=== PATIENT | female | born 1975 | race Caucasian/White ===

== ENCOUNTER 2017-10-13 15:09 | Emergency (ER) | payer OTHER ==
[~2017-10-13] VITALS: Ht 170.2 cm; Wt 133.9 kg
[~2017-10-13 15:09] MED LIST: ACETAMINOPHEN650 M5 PO; ADULT LOW DOSE81 MG PO; ASPIR-LOW81 MG PO; ASPIR-TRIN325 MG PO; ASPIRIN EC81 M1 PO; ATORVASTATIN CA40 MG PO; AZITHROMYCIN 2250 MG PO; BRILINTA90 MG PO; BUMETANIDE 1 MG1 M1 PO; BUMEX2 MG PO; BYETTA PEN 51 PENIN1 SUBQ; CARVEDILOL12.5 MG PO; CARVEDILOL25 MG PO; CARVEDILOL6.25 MG PO; CEFDINIR300 MG PO; CENTRUM SILVER1 EAC2 PO; CIPROFLOXACIN500 M1 PO; CLOTRIMAZOLE 1%15 G1 TOP; COZAAR 50 MG TA50 MG PO; COZAAR100 MG PO; CRESTOR10 MG PO; DIFLUCAN200 MG PO; DOXYCYCLINE 10100 M1 PO; ENTRESTO 24 MG1 EACH PO; FENOFIBRATE160 MG PO; FEOSOL325 M1 PO; FISH OIL 1,001000 M2 PO; FLONASE 0.05%50 MCG NASAL; GLUCOPHAGE XR500 MG PO; GLUCOPHAGE1000 MG PO; HUMALOG MI100 UNIT/3; HUMALOG100 UNIT/1 SUBQ; HYDRALAZINE 2525 M1 PO; IRON SUPPLEMEN325 MG PO; IRON325 PO; JANUVIA50 MG PO; KEFLEX500 MG PO; LASIX 40 MG TAB40 MG PO; LASIX 80 MG TAB80 MG PO; LEVAQUIN 500 M500 MG PO; LEVAQUIN 750 M750 MG PO; LEVEMIR SUBQ; LIPITOR 20 MG T20 M1 PO; LIPITOR40 MG PO; MACROBID 100 M100 M1 PO; MINOCIN100 MG PO; MS CONTIN15 MG PO; MULTIVITAMINS1 EAC7 PO; NEURONTIN 300300 M1 PO; NITROGLYCERIN0.4 MG SUBLING; NORCO 7.5-3251 EACH PO; NORVASC5 MG PO; OMEPRAZOLE20 M2 PO; ONDANSETRON HCL4 M2 PO; OSELB75 PO; PERCOCET 10-321 EACH PO; PHENERGAN 25 MG25 M1 PO; PLAVIX 75 MG TA75 M1 PO; POTASSIUM20 PO; PROTONIX40 M1 PO; PYRIDIUM200 MG PO; ROBAXIN 750 MG750 M1 PO; SANTYL OINTMENT30 G1 TOP; TESSALON PERLE100 MG PO; TYLENOL325 MG PO; VANCO1GM PO; VENTOLIN HFA 1818 GM INH; VITAMIN B12-FO1 EAC1 PO; ZOFRAN ODT4 MG PO; ZOFRAN ODT4 MG SUBLING
[2017-10-13] MEDS ORDERED: LASIX 40 MG TAB40 M2 PO (15:26)
[2017-10-13 17:11] LABS: ABSOLUTE BASOPHILS 0.1 thou/uL (0.0-0.2); ABSOLUTE EOSINOPHILS 0.2 thou/uL (0.0-0.7); ABSOLUTE LYMPHOCYTES 2.8 thou/uL (0.8-5.3); ABSOLUTE MONOCYTES 0.6 thou/uL (0.0-1.2); BASOPHILS 0.9 %; EOSINOPHILS 2.2 %; HEMATOCRIT 38.8 % (37.0-47.0); HEMOGLOBIN 12.6 gm/dL (12.0-15.0); LYMPHOCYTES 32.1 %; MCH 27.4 pg (26.0-34.0); MCHC 32.6 g/dL (28.0-37.0); MCV 84.2 fL (80.0-100.0); MONOCYTES 6.8 %; MPV 9.1 fl. (7.2-11.1); NUCLEATED RBCS 0 /100WBC; PLATELET COUNT* 367 thou/uL (150-400); RBC 4.61 mil/uL (4.20-5.00); RDW-CV 15.3 % (10.5-14.5); WBC 8.6 thou/uL (4.0-11.0)
[2017-10-13 17:18] LABS: ANION GAP 5 mmol/L (7-16); BUN 31 mg/dL (7-18); CALCIUM 9.3 mg/dL (8.5-10.1); CHLORIDE 98 mmol/L (98-107); CO2 31 mmol/L (21-32); CREATININE 1.6 mg/dL (0.6-1.3); GLUCOSE 289 mg/dL (70-99); SODIUM 134 mmol/L (136-145)
[2017-10-13 17:18] LABS: URINE BILIRUBIN NEGATIVE (Negative); URINE BLOOD 2+ (Negative); URINE CLARITY SL CLOUDY; URINE COLOR YELLOW; URINE GLUCOSE-RANDOM 3+ (Negative); URINE KETONES NEGATIVE (Negative); URINE LEUKOCYTES-REFLEX 1+ (Negative); URINE NITRITE-REFLEX NEGATIVE (Negative); URINE PROTEIN 3+ (Negative); URINE UROBILINOGEN 0.2 E.U./dl (0.2-1.0)
[2017-10-13 17:25] LABS: ALBUMIN 2.6 g/dL (3.4-5.0); ALKALINE PHOSPHATASE 122 U/L (46-116); SGOT 17 U/L (15-37); SGPT 24 U/L (30-65); TOTAL BILIRUBIN 0.2 mg/dL (<0.1-1.0); TOTAL PROTEIN 7.6 g/dL (6.4-8.2); TROPONIN-I LEVEL <0.06 ng/mL (<0.06)
[2017-10-13 17:26] LABS: SQUAMOUS >10 Many /LPF (0-3)
[2017-10-13 17:26] LABS: AMP/METHAMP Negative (Negative); BARBITURATES Negative (Negative); BENZODIAZEPINES Negative (Negative); COCAINE Negative (Negative); METHADONE Negative (Negative); OPIATES Negative (Negative); PCP Negative (Negative); THC Negative (Negative)
[2017-10-13 17:27] LABS: CASTS None Seen /LPF (None Seen); CRYSTALS None Seen /LPF (None Seen); URINE RBC >20 Many /HPF (0-2); URINE WBC-REFLEX >25 Many /HPF (0-5)
[2017-10-13 19:00] VITALS: BP 160/80
== END 2017-10-13 19:00 | disposition home or self-care (01) ==
LOC: M.ERS 15:09
PROVIDERS: Personal Emergency Response Attendant
DX: B34.9 Viral infection, unspecified (principal); R42 Dizziness and giddiness; E11.9 Type 2 diabetes mellitus without complications; G47.30 Sleep apnea, unspecified; E66.01 Morbid (severe) obesity due to excess calories; I73.9 Peripheral vascular disease, unspecified; I11.0 Hypertensive heart disease with heart failure; I50.9 Heart failure, unspecified; Z88.8 Allergy status to other drugs, medicaments and biological substances; Z90.49 Acquired absence of other specified parts of digestive tract; Z88.2 Allergy status to sulfonamides; Z79.4 Long term (current) use of insulin; Z68.42 Body mass index [BMI] 45.0-49.9, adult

== ENCOUNTER 2018-03-06 04:41 | Inpatient (IN) | payer OTHER ==
[~2018-03-06] VITALS: Ht 180.3 cm; Wt 142.3 kg
[~2018-03-06 04:41] MED LIST changes: +LASIX 40 MG TAB40 M2 PO
[2018-03-06 04:47] VITALS: BP 171/79
[2018-03-06] MEDS ORDERED: COREG25 M1 PO (05:06)
[2018-03-06] MEDS ORDERED: IRON325 PO (05:07)
[2018-03-06] MEDS ORDERED: LASIX 40 MG TAB40 M1 PO (05:07)
[2018-03-06] MEDS ORDERED: NEURONTIN600 MG PO (05:09)
[2018-03-06] MEDS ORDERED: NEURONTIN 300M300 M2 PO (05:10)
[2018-03-06] MEDS ORDERED: HYSINGLA ER30 MG PO (05:11)
[2018-03-06 05:48] LABS: ABSOLUTE BASOPHILS 0.1 thou/uL (0.0-0.2); ABSOLUTE EOSINOPHILS 0.3 thou/uL (0.0-0.7); ABSOLUTE LYMPHOCYTES 2.9 thou/uL (0.8-5.3); ABSOLUTE MONOCYTES 0.6 thou/uL (0.0-1.2); ABSOLUTE NEUTROPHILS 5.1 thou/uL (1.6-8.1); BASOPHILS 1.4 %; EOSINOPHILS 2.9 %; HEMATOCRIT 33.7 % (37.0-47.0); HEMOGLOBIN 10.7 gm/dL (12.0-15.0); MCHC 31.8 g/dL (28.0-37.0); MCV 84.8 fL (80.0-100.0); MONOCYTES 6.8 %; MPV 8.9 fl. (7.2-11.1); NUCLEATED RBCS 0 /100WBC; PLATELET COUNT* 392 thou/uL (150-400); POLYS 56.9 %; RBC 3.98 mil/uL (4.20-5.00); RDW-CV 15.7 % (10.5-14.5); WBC 8.9 thou/uL (4.0-11.0)
[2018-03-06 05:53] LABS: URINE BILIRUBIN NEGATIVE (Negative); URINE BLOOD 2+ (Negative); URINE CLARITY CLEAR; URINE COLOR STRAW; URINE GLUCOSE-RANDOM 1+ (Negative); URINE KETONES NEGATIVE (Negative); URINE PROTEIN 3+ (Negative); URINE UROBILINOGEN 0.2 E.U./dl (0.2-1.0)
[2018-03-06 05:58] LABS: URINE LEUKOCYTES-REFLEX 2+ (Negative); URINE NITRITE-REFLEX POSITIVE (Negative)
[2018-03-06 05:59] LABS: CALCIUM 8.9 mg/dL (8.5-10.1); CREATININE 1.6 mg/dL (0.6-1.3)
[2018-03-06 06:03] LABS: BACTERIA-REFLEX >30 Many /HPF (None Seen); CASTS None Seen /LPF (None Seen); CRYSTALS None Seen /LPF (None Seen); MUCUS 0-3 Light strn/LPF (None Seen); SQUAMOUS 4-10 Moderate /LPF (0-3); TRANSITIONAL EPITHEL CELL 4-10 Moderate /LPF (None Seen); URINE WBC-REFLEX >25 Many /HPF (0-5); WBC CLUMPS Many (None Seen)
[2018-03-06 10:45] VITALS: BP 157/87
[2018-03-06 11:11] VITALS: BP 160/84
[2018-03-06] MEDS ORDERED: ENTRESTO 49 MG1 EACH PO (11:49)
[2018-03-06 16:00] VITALS: BP 185/96
--- NOTE | 2018-03-06 16:54 | 2DMMODE ---
[place] [address] 2 D/M-MODE ECHOCARDIOGRAM Name: CANDACE MARIA Room: [address] IN M.R.#: [id number] Admission: 03/06/18 Attend Phys: Tito Dubon Discharge: Date of : 75 Date of Service: 03/06/18 1654 Report #: [id number] THIS REPORT FOR: //name// APPROVED REPORT Study performed: 03/06/2018 14:41:53 EXAM: Comprehensive 2D, Doppler, and color-flow Echocardiogram Patient Location: Bedside BSA: 2.51 HR: 72 bpm BP: 160/84 mmHg Other Information Study Quality: Fair Indications Congestive Heart Failure 2D Dimensions LVEF(%): 50.10 (>50%) IVSd: 10.08 (7-11mm) LVOT Diam: 18.54 (18-24mm) LVDd: 47.01 mm PWd: 9.83 (7-11mm) Ascending Ao: 31.81 (22-36mm) LVDs: 35.07 (25-40mm) Aortic Root: 31.71 mm Phipps's LVEF: 50.10 % Volumes Left Atrial Volume (Systole) LA ESV Index: 36.80 mL/m2 Aortic Valve AoV Peak Alejandro.: 0.98 m/s AO Peak Gr.: 3.88 mmHg LVOT Max P.22 mmHg AO Mean Gr.: 2.23 mmHg LVOT Mean P.70 mmHg LVOT Max V: 0.55 m/s AO V2 VTI: 17.63 cm LVOT Mean V: 0.39 m/s RO (VTI): 1.85 cm2 LVOT V1 VTI: 12.11 cm Mitral Valve E/A Ratio: 1.95 MV Decel. Time: 165.76 ms MV E Max Alejandro.: 0.72 m/[place] [address] 2 D/M-MODE ECHOCARDIOGRAM Name: CANDACE MARIA Room: [address] IN .R.#: [id number] Admission: 03/06/18 Attend Phys: Tito Dubon Discharge: Date of : 75 Date of Service: 03/06/18 1654 Report #: [id number] MV PHT: 48.07 ms MVA (PHT): 4.58 cm2 TDI E/Lateral E': 18.00 E/Medial E': 10.29 Medial E' Alejandro.: 0.07 m/s Lateral E' Alejandro.: 0.04 m/s Pulmonary Valve PV Peak Alejandro.: 0.85 m/s PV Peak Gr.: 2.92 mmHg Tricuspid Valve RAP Estimate: 5.00 mmHg TR Peak Gr.: 50.95 mmHg RVSP: 55.95 mmHg PA Pressure: 55.95 mmHg Left Ventricle The left ventricle is normal size. inferobasilar hypokinesis is noted There is normal left ventricular wall thickness. Left ventricular systolic function is borderline. LVEF is 50-55%. The left ventricular diastolic function is normal. Right Ventricle The right ventricle is normal size. The right ventricular systolic function is normal. Atria Left atrium is mildly dilated. Right atrium is mildly dilated. Aortic Valve Mild aortic valve sclerosis. Trace aortic regurgitation. There is no aortic valvular stenosis. Mitral Valve The mitral valve is normal in structure. Trace mitral regurgitation. No evidence of mitral valve stenosis. Tricuspid Valve The tricuspid valve is normal in structure. Moderate tricuspid regurgitation. Pulmonic Valve The pulmonary valve is normal in structure. [place] [address] 2 D/M-MODE ECHOCARDIOGRAM Name: CANDACE MARIA Room: [address]#: [id number] Admission: 03/06/18 Attend Phys: Tito Dubon Discharge: Date of : 75 Date of Service: 03/06/18 1654 Report #: [id number] Great Vessels The aortic root is normal in size. IVC is normal in size and collapses with >50% inspiration Pericardium Mild circumferential pericardial effusion. <Conclusion> The left ventricle is normal size. There is normal left ventricular wall thickness. LVEF is 50-55%. The left ventricular diastolic function is normal. The right ventricle is normal size. Left atrium is mildly dilated. Mild aortic valve sclerosis. Trace aortic regurgitation. There is no aortic valvular stenosis. The mitral valve is normal in structure. IVC is normal in size and collapses with >50% inspiration Mild circumferential pericardial effusion. inferobasilar hypokinesis is noted <ELECTRONICALLY SIGNED> By: Watson Soriano MD, FACC 03/06/181653 53 53 Watson Soriano MD, FACC /INF
--- NOTE | 2018-03-06 18:43 | EKG ---
[place] [address] ELECTROCARDIOGRAM REPORT Name: CANDACE MARIA Room: [address] IN [facility]#: [id number] Admission: 03/06/18 Attend Phys: Nicolle Turcios Discharge: Date of : 75 Report #: [id number] THIS REPORT FOR: //name// [facility] ED Test Date: 2018-03-06 Test Time: 05:43:36 Pat Name: CANDACE ENG Department: Room: Gender: F [place] Ref[employer]ator: [facility] : 1975 Requested By: Tiki Luna Order Number: [id number] MD: Watson Soriano Measurements Intervals [place] Rate: 74 P: 34 IA: 131 QRS: -8 QRSD: 93 T: 140 QT: 418 QTc: 464 Interpretive Statements Sinus rhythm Inferior infarct, old Consider anterior infarct Lateral leads are also involved Compared to ECG 08/14/2017 09:23:51 Myocardial infarct finding now present T-wave abnormality no longer present Possible ischemia no longer present Electronically Signed On 03-06-2018 18:43:17 CDT by Watson Soriano [email or web address] <ELECTRONICALLY SIGNED> By: Watson Soriano MD, [facility] 03/06/18 1843 0543 0543 Watson Soriano MD, [facility] /EPI
[2018-03-06 19:40] VITALS: BP 149/91
[2018-03-06 23:00] VITALS: BP 160/82
[2018-03-07 03:00] VITALS: BP 144/70
[2018-03-07 09:00] VITALS: BP 179/87
[2018-03-07 11:35] VITALS: BP 134/64
[2018-03-07 15:57] VITALS: BP 134/68
[2018-03-07 19:25] VITALS: BP 140/64
[2018-03-08] VITALS: BP 123/57
[2018-03-08 04:00] VITALS: BP 137/65
[2018-03-08 08:30] VITALS: BP 159/84
[2018-03-08 12:00] VITALS: BP 154/79
[2018-03-08 15:22] VITALS: BP 157/89
[2018-03-08 18:11] LABS: URINE BILIRUBIN NEGATIVE (Negative); URINE BLOOD 1+ (Negative); URINE CLARITY CLEAR; URINE COLOR YELLOW; URINE GLUCOSE-RANDOM 1+ (Negative); URINE KETONES NEGATIVE (Negative); URINE LEUKOCYTES 1+ (Negative); URINE NITRITE NEGATIVE (Negative); URINE PROTEIN 2+ (Negative); URINE UROBILINOGEN 0.2 E.U./dl (0.2-1.0)
[2018-03-08 18:17] LABS: MUCUS None Seen strn/LPF (None Seen); SQUAMOUS 4-10 Moderate /LPF (0-3)
[2018-03-08 18:18] LABS: URINE WBC >25 Many /HPF (0-5); WBC CLUMPS Few (None Seen)
[2018-03-08 18:19] LABS: BACTERIA 1-9 Few /HPF (None Seen); URINE RBC 0-2 Rare /HPF (0-2)
[2018-03-08 18:20] LABS: CRYSTALS None Seen /LPF (None Seen); HYALINE CASTS 0-3 Few /LPF (None Seen)
[2018-03-08 20:00] VITALS: BP 188/97
[2018-03-09] VITALS (7 sets, daily range): BP systolic 103–170; BP diastolic 64–89
--- NOTE | 2018-03-09 16:58 | CARDNUC ---
[place] [address] CARDIAC NUCLEAR IMAGING REPORT Name: CANDACE MARIA Room: [address] IN [facility]#: [id number] Admission: 03/06/18 Attend Phys: Tito Dubon Discharge: Date of : 75 Date of Service: 03/09/18 1658 Report #: [id number] THIS REPORT FOR: //name// APPROVED REPORT Imaging Protocol: Stress Tc-99m/Rest Tc-99m 2 days Study performed: 03/08/2018 09:39:00 Indication: Dyspnea Patient Location: In-Patient Room #: 211 Stress Tech: Heather Townsend Stress Nurse: Selene Pham RN NM Tech:DEION Kumar Ht: 5 ft 11 in Wt: 317 lbs BSA: 2.56 m2 BMI: 44.20 Medical History Medical History: CAD s/p stent, Diabetes, HTN, Hyperlipidemia, PAD, CHF Medications: coreg, fenofibrate, asa, lasix, kcl, clopidogrel Allergies: sulfa, lisinopril, polyethylene, kcl, colesevelany, bicarbonate, sitagliptin Cardiac Risk Factors: Age, DM, FHX of CAD, HTN, Hyperlipidemia, PVD Previous Cardiac Procedures: PCI Exercise History: Sedentary Meds Held (24 hrs): coreg Resting Data Rest SPECT myocardial perfusion imaging was performed in supine position 30 minutes following the intravenous injection of 42 mCi of Tc-99m Sestamibi. Time of rest injection: 0820 Date: 03/09/2018 Time of rest imagin The images were gated to evaluate regional wall motion and calculate left ventricular ejection fraction. Administration Route: IV Administration Site: Left AC Pharmacologic Stress Pharmacologic stress test was performed by injecting Regadenoson 0.4 mg IV push over 10-15 seconds immediately [place] [address] CARDIAC NUCLEAR IMAGING REPORT Name: CANDACE MARIA Room: [address]#: [id number] Admission: 03/06/18 Attend Phys: Tito Dubon Discharge: Date of : 75 Date of Service: 03/09/18 1658 Report #: [id number] injection of 39.1 mCi of Tc-99m Sestamibi. Time of stress injection: 1400 Date: 03/08/2018 Administration Route: IV Administration Site: Left AC Heart Rate at time of stress injection: 87 bpm. Gated Stress SPECT was performed 40 minutes after stress injection. The images were gated to evaluate regional wall motion and calculate left ventricular ejection fraction. Stress only was performed in the Supine position. Stress Test Details Stress Test: Pharmacologic stress testing performed using 0.4 mg of regadenoson per 5 mL given IV over 10 seconds. Reason for pharmacologic stress test: physical limitation. HR Resting HR: 70 bpm Max Heart Rate (APMHR): 178 bpm Max HR Achieved: 87 bpm Target HR (85% APMHR): 151 bpm % of APMHR: 48 Recovery HR: 85 bpm HR response to stress: Normal HR response to stress BP Resting BP: 130/90 mmHg Max BP: 145/68 mmHg BP response to stress: Normal blood pressure response to stress. ECG Resting ECG: nsr anterior infarct Stress ECG: same ST Change: none Recovery ECG: nsr Clinical Reason for Termination: Completed protocol Stress Symptoms: None Exercise duration: 0 min sec Exercise capacity: 1.0 METs Stress ECG Conclusion negative ecg Study Quality Study: [place] [address] CARDIAC NUCLEAR IMAGING REPORT Name: CANDACE MARIA Room: [address]#: [id number] Admission: 03/06/18 Attend Phys: Tito Dubon Discharge: Date of : 75 Date of Service: 03/09/18 1658 Report #: [id number] Artifact: Severe Breast artifact Lung Uptake: Normal Study Data At rest, the left ventricular ejection fraction was 41%.. Post stress, the left ventricular ejection was 48%.. SSS: 27 SRS: 26 SDS: 1 Perfusion This study reveals a large, severe intensity anterior , inferolateral defects. They are partially reversible in particular laterally. There is significant breast shadowing present, but gating reveals hypokinesis laterally and anterior. Images were reviewed using [employer] ([employer]). Wall Motion anterior and lateral hypokinesis Nuclear Conclusion ECG Findings: negative for ischemia Clinical Findings: negative for ischemia Nuclear Findings: positive for ischemia Exercise Capacity: not assessed Left Ventricular Function: abnormal Risk Study: high Given the size of the defect and LV dysfunction, findings compatible with an ischemic cardiomyopathy and lateral ischemia. <Conclusion> negative ecg <ELECTRONICALLY SIGNED> By: Stephan Gill MD, FACC 03/09/18 1658 57 57 Stephan Gill MD, FACC /INF
[2018-03-10] VITALS (18 sets, daily range): BP systolic 132–177; BP diastolic 62–98
[2018-03-10 05:31] LABS: APTT 27.8 Seconds (25.0-31.3)
[2018-03-10 05:45] LABS: ANION GAP 8 mmol/L (7-16); BUN 33 mg/dL (7-18); CALCIUM 9.3 mg/dL (8.5-10.1); CHLORIDE 100 mmol/L (98-107); CHOLESTEROL 269 mg/dL (<200); CO2 29 mmol/L (21-32); CREATININE 1.8 mg/dL (0.6-1.3); GLUCOSE 204 mg/dL (70-99); HDL CHOLESTEROL 29 mg/dL (>40); POTASSIUM 5.2 mmol/L (3.5-5.1); SODIUM 137 mmol/L (136-145); TC:HDL 9.3 Ratio (Not establshd); TRIGLYCERIDE 637 mg/dL (<150); VLDL 127 mg/dL (<40)
[2018-03-10 05:52] LABS: LDL CHOLESTEROL ND mg/dL (<100); SERUM ASSESSMENT Clear
[2018-03-10 08:27] LABS: ABSOLUTE BASOPHILS 0.1 thou/uL (0.0-0.2); ABSOLUTE EOSINOPHILS 0.3 thou/uL (0.0-0.7); ABSOLUTE LYMPHOCYTES 3.3 thou/uL (0.8-5.3); ABSOLUTE MONOCYTES 0.7 thou/uL (0.0-1.2); ABSOLUTE NEUTROPHILS 4.7 thou/uL (1.6-8.1); BASOPHILS 1.2 %; EOSINOPHILS 3.3 %; HEMATOCRIT 34.1 % (37.0-47.0); HEMOGLOBIN 10.5 gm/dL (12.0-15.0); LYMPHOCYTES 36.3 %; MCH 26.7 pg (26.0-34.0); MCHC 30.8 g/dL (28.0-37.0); MCV 86.8 fL (80.0-100.0); MONOCYTES 8.1 %; MPV 9.7 fl. (7.2-11.1); NUCLEATED RBCS 0 /100WBC; PLATELET COUNT* 379 thou/uL (150-400); POLYS 51.1 %; RBC 3.93 mil/uL (4.20-5.00); WBC 9.2 thou/uL (4.0-11.0)
[2018-03-10 17:17] LABS: URINE BILIRUBIN NEGATIVE (Negative); URINE BLOOD 1+ (Negative); URINE CLARITY CLEAR; URINE COLOR YELLOW; URINE GLUCOSE-RANDOM TRACE (Negative); URINE KETONES NEGATIVE (Negative); URINE LEUKOCYTES-REFLEX 1+ (Negative); URINE NITRITE-REFLEX NEGATIVE (Negative); URINE PROTEIN 2+ (Negative); URINE UROBILINOGEN 0.2 E.U./dl (0.2-1.0)
[2018-03-10 17:23] LABS: SQUAMOUS 4-10 Moderate /LPF (0-3)
[2018-03-10 17:24] LABS: AMORPHOUS URATES Few /LPF (None Seen); CASTS None Seen /LPF (None Seen); URINE RBC 0-2 Rare /HPF (0-2)
[2018-03-11 04:00] VITALS: BP 139/63
[2018-03-11 05:30] LABS: ABSOLUTE BASOPHILS 0.1 thou/uL (0.0-0.2); ABSOLUTE EOSINOPHILS 0.2 thou/uL (0.0-0.7); ABSOLUTE LYMPHOCYTES 2.5 thou/uL (0.8-5.3); ABSOLUTE MONOCYTES 0.7 thou/uL (0.0-1.2); ABSOLUTE NEUTROPHILS 4.2 thou/uL (1.6-8.1); BASOPHILS 0.9 %; EOSINOPHILS 2.7 %; HEMOGLOBIN 10.3 gm/dL (12.0-15.0); LYMPHOCYTES 32.4 %; MCH 27.4 pg (26.0-34.0); MCV 85.4 fL (80.0-100.0); MONOCYTES 8.8 %; MPV 9.3 fl. (7.2-11.1); NUCLEATED RBCS 0 /100WBC; PLATELET COUNT* 341 thou/uL (150-400); POLYS 55.2 %; RBC 3.75 mil/uL (4.20-5.00); RDW-CV 15.8 % (10.5-14.5); WBC 7.6 thou/uL (4.0-11.0)
[2018-03-11 05:54] LABS: CALCIUM 8.6 mg/dL (8.5-10.1); CREATININE 1.7 mg/dL (0.6-1.3); MAGNESIUM 2.1 mg/dL (1.8-2.4); POTASSIUM 4.2 mmol/L (3.5-5.1)
[2018-03-11 08:00] VITALS: BP 170/83
[2018-03-11 11:34] VITALS: BP 158/68
[2018-03-11] MEDS ORDERED: TOPROL XL50 MG PO (14:16)
[2018-03-11 14:27] VITALS: BP 158/68
--- NOTE | 2018-03-20 17:14 | CARD ---
[address] [address] CARDIAC CATH REPORT Name: CANDACE MARIA Room: [address] IN [facility]#: [id number] Admission: 03/06/18 Attend Phys: Nicolle Turcios Discharge: 03/11/18 Date of : 75 Report #: [id number] THIS REPORT FOR: //name// APPROVED REPORT Study performed: 03/10/2018 12:03:31 Patient Details Patient Status: In-Patient Room #: The patient is a 42 year-old female Event Personnel Moe Barillas Remedial Project Manager, Mary Anne Vinson RN RN, Elena Naqvi RN Monitor, Lindsay Carbajal RTR Scrub Procedures Performed Art Access - R femoral artery* , Left Heart Catheterization Hemostasis w/ Mynx Procedure Narrative A 6 Fr. sheath was inserted into the Right femoral Artery. Coronary angiography was performed using coronary diagnostic catheters. The right coronary system was accessed and visualized with a 6Fr JR4 catheter. The left coronary system was accessed and visualized with a 6Fr JL4 catheter. The left ventricle was accessed and visualized with a 6Fr Pigtail catheter. Pre-demployment femoral angiogram was performed . Closure device was deployed with a Fr MynxGrip 6/7F. The patient tolerated the procedure well and there were no complications associated with the procedure. Intraoperative Conscious Sedation Fentanyl 50 mcg Dose: 969 mGy Contrast Type and Amount: Visipaque 90 ml Coronary Angiography The patient's coronary anatomy is right dominant. Diagnostic Cath Left Main Normal LAD Widely patent stent proximally. Mid vessel free of significant disease. Distally the vessel is diffusely diseased up to 70% throughout. Diagonal 1 Small in caliber 90% [place] [address] CARDIAC CATH REPORT Name: CANDACE MARIA Room: [address]#: [id number] Admission: 03/06/18 Attend Phys: Nicolle Turcios Discharge: 03/11/18 Date of : 75 Report #: [id number] Diagonal 2 Small in caliber 90% ostial stenosis. Circumflex 10% plaquing proximally. 30% narrowing in the mid vessel. OM1 Small in caliber with 60-70% narrowing proximally. OM2 Large in caliber 50% narrowing proximally. Right Coronary Totally occluded stent proximally. Hemodynamics The aortic pressure is 155/76 mmHg with a mean of 98 mmHg. The left ventricular pressure is 149/26 mmHg with a mean of mmHg. The left ventricular end diastolic pressure is 42 mmHg. Conclusion 1. Severe three-vessel coronary artery disease 2. Elevated left ventricular end-diastolic pressure consistent with acute diastolic heart failure Recommendations Continue aggressive risk factor modification and medical management <ELECTRONICALLY SIGNED> By: Moe Barillas MD, FACC 03/20/18 1714 1714 1714Michaesandie Barillas MD, [facility] /INF
--- NOTE | 2018-03-23 09:13 | CON ---
[address] [address] CONSULTATION Name: CANDACE MARIA Room: [address]#: [id number] Admission: 03/06/18 Attend Phys: Nicolle Turcios Discharge: 03/11/18 Date of : 75 Report #: [id number] THIS REPORT FOR: //name// CC: Tito Ferrell DATE OF SERVICE: 03/10/2018 REASON FOR NEPHROLOGY CONSULTATION: Chronic kidney disease stage 3. CONSULTING PHYSICIAN: Dr. Cristobal. REASON FOR ADMISSION: Shortness of breath, increasing. HISTORY OF PRESENT ILLNESS: This is a very pleasant 42-year-old female who has past medical history of diabetes mellitus type 2, hypertension, diabetic and hypertensive nephropathy causing CKD stage 3 with baseline creatinine around 1.5-1.6, follows in our office, congestive heart failure with a most recent ejection fraction being 41%, both systolic and diastolic features, and other medical problems who came in complaining of shortness of breath. Echocardiogram showed evidence of moderate pericardial effusion. She takes Lasix 40 mg p.o. b.i.d. at home. She was started on 40 mg IV b.i.d. Her urinalysis showed a contaminated specimen, but she was started on antibiotics. Her creatinine was 1.6 when she came in and it was 1.7 today. The patient did receive cardiac catheterization yesterday because of her abnormal stress test, but that did not show any evidence of ischemia as per patient. Currently, she notes that her shortness of breath is much better. She does have some edema, but the patient states that this is not as bad as before. She has no difficulty urinating. REVIEW OF SYSTEMS: Shortness of breath, which is now better. Leg edema, which is also not worse from before. Other review of systems were done and they were negative. There is no dysuria. ALLERGIES: WELCHOL, LISINOPRIL, SULFA, GOLYTELY, SITAGLIPTIN, POTASSIUM CHLORIDE, SODIUM BICARBONATE. PAST MEDICAL HISTORY: Includes history of hypertension, diabetes type 2, history of pneumonia, CKD stage 3 with baseline creatinine 1.5-1.6, cardiomyopathy since 2012, anemia, needing blood transfusions, coronary artery disease, has 2 stents. History of endometrial cancer, history of chronic C. diff, follows with ID. Live-donor transplant in 02/2016. Gastritis, morbid obesity, anxiety, PVD. PAST SURGICAL HISTORY: Includes cholecystectomy, rotator cuff surgery, heart catheterization [place] [address] CONSULTATION Name: CANDACE MARIA Room: [address]#: [id number] Admission: 03/06/18 Attend Phys: Nicolle Turcios Discharge: 03/11/18 Date of : 75 Report #: [id number] FAMILY HISTORY: Significant for diabetes and hypertension. SOCIAL HISTORY: She does not smoke or use alcohol or use illicit drugs. CURRENT MEDICATIONS: Include fenofibrate, Coreg, ferrous sulfate, Lasix, gabapentin, hydrocodone, fluticasone, aspirin, , Plavix, omeprazole, Percocet, Crestor, potassium chloride. PHYSICAL EXAMINATION: VITAL SIGNS: Blood pressure is 139/63, respiratory rate 15, pulse rate is 75, temperature 36.7 and pulse ox is 97% on room air. GENERAL: She was drowsy, but she was easily arousable and she was oriented x 3. HEAD, EYES, EARS, NOSE AND THROAT: Mucous membranes are moist. NECK: There was no JVD. CHEST: Diminished breath sounds with no crackles or wheezing. CARDIOVASCULAR: S1, S2 normal. No murmurs are noted. ABDOMEN: Soft, nondistended, obese, nontender. Bowel sounds present. EXTREMITIES: There was 1+ lower extremity edema bilaterally, symmetrical extremities. NEUROLOGICAL FUNCTION: Gross neurological function was intact. PSYCHIATRIC: Mood and affect seems to be normal. She was pleasant. LABORATORY DATA: From today, hemoglobin was 10.3. Potassium was 4.2, creatinine was 1.7, sodium was 136. Other labs were reviewed. IMAGING: Stress test and CT reports were reviewed. ASSESSMENT AND PLAN: 1. CKD stage 3, presumably diabetic and hypertensive nephropathy: Creatinine at baseline is 1.5-1.6 and creatinine is 1.7 today, which is very close to her baseline. She did receive cardiac catheterization yesterday, so she should get a BMP checked on Tuesday, which is 03/13/2018. There is no need for renal ultrasound since creatinine is not much worse from her baseline. There is no need for antibiotics since she does not look like she has a real UTI, so we will stop the antibiotics. Keep Entresto on hold for now, that can be started as an outpatient. She can continue her home dose of Lasix for now. 2. Coronary artery disease, status post catheterization: Catheterization did not show significant ischemia as per patient and she did not need any intervention. Cardiology is following her. 3. Diabetes type 2: Defer to primary team and her primary doctor. 4. Hypertension: Blood pressure is mostly controlled, seems to be controlled this morning; keep Entresto on hold for now, can be started as an outpatient. 5. Hyperlipidemia: Fenofibrate will be decreased to 43 mg per day because of decreased renal function. 6. Moderate pericardial effusion: Continue home dose of Lasix and Cardiology [facility] [address] [place] [address] CONSULTATION Name: CANDACE MARIA Room: [address] IN [facility].#: [id number] Admission: 03/06/18 Attend Phys: Nicolle Turcios Discharge: 03/11/18 Date of : 75 Report #: [id number] is watching for that. The patient to get BMP on Tuesday, order given. The patient is to follow up with us in 2-3 weeks after discharge. Thank you for this consultation. <ELECTRONICALLY SIGNED> By: Rosa Camara MD 03/23/18 0913 0835 [id number] Camara MD /nt
== END 2018-03-11 14:55 | disposition home or self-care (01) | DRG 280 ==
LOC: M.ERS 04:41 → M.2W 09:03 → M.TBA-ER 09:03 → M.2W 10:49
PROVIDERS: Emergency Medicine; Family Medicine; Internal Medicine Cardiovascular Disease; Nurse Practitioner Family; ADMIT Internal Medicine
PROC: 4A023N7 Measurement of Cardiac Sampling and Pressure, Left Heart, Percutaneous Approach (ICD-10-PCS; principal; 2018-03-10)
PROC: B2111ZZ Fluoroscopy of Multiple Coronary Arteries using Low Osmolar Contrast (ICD-10-PCS; principal; 2018-03-10)
DX: I21.4 Non-ST elevation (NSTEMI) myocardial infarction (principal); I50.43 Acute on chronic combined systolic (congestive) and diastolic (congestive) heart failure; N39.0 Urinary tract infection, site not specified; I13.0 Hypertensive heart and chronic kidney disease with heart failure and stage 1 through stage 4 chronic kidney disease, or unspecified chronic kidney disease; Z68.41 Body mass index [BMI] 40.0-44.9, adult; N18.3 Chronic kidney disease, stage 3 (moderate); F41.9 Anxiety disorder, unspecified; E66.01 Morbid (severe) obesity due to excess calories; E78.5 Hyperlipidemia, unspecified; E11.22 Type 2 diabetes mellitus with diabetic chronic kidney disease; I25.5 Ischemic cardiomyopathy; G89.29 Other chronic pain; E11.51 Type 2 diabetes mellitus with diabetic peripheral angiopathy without gangrene; I25.10 Atherosclerotic heart disease of native coronary artery without angina pectoris; Z82.49 Family history of ischemic heart disease and other diseases of the circulatory system; Z90.49 Acquired absence of other specified parts of digestive tract; Z79.4 Long term (current) use of insulin; Z95.5 Presence of coronary angioplasty implant and graft; Z85.42 Personal history of malignant neoplasm of other parts of uterus; Z88.2 Allergy status to sulfonamides; Z83.3 Family history of diabetes mellitus; Z88.8 Allergy status to other drugs, medicaments and biological substances; Z79.82 Long term (current) use of aspirin; Z79.899 Other long term (current) drug therapy

== ENCOUNTER 2018-03-21 11:06 | Observation (INO) | payer OTHER ==
[~2018-03-21] VITALS: Ht 180.3 cm; Wt 137.9 kg
[~2018-03-21 11:06] MED LIST changes: +COREG25 M1 PO; +ENTRESTO 49 MG1 EACH PO; +HYSINGLA ER30 MG PO; +LASIX 40 MG TAB40 M1 PO; +NEURONTIN 300M300 M2 PO; +NEURONTIN600 MG PO; +TOPROL XL50 MG PO
[2018-03-21 11:11] VITALS: BP 202/90
[2018-03-21 11:26] LABS: ABSOLUTE BASOPHILS 0.1 thou/uL (0.0-0.2); ABSOLUTE EOSINOPHILS 0.4 thou/uL (0.0-0.7); ABSOLUTE LYMPHOCYTES 2.5 thou/uL (0.8-5.3); ABSOLUTE MONOCYTES 1.1 thou/uL (0.0-1.2); ABSOLUTE NEUTROPHILS 12.7 thou/uL (1.6-8.1); BASOPHILS 0.9 %; EOSINOPHILS 2.5 %; HEMATOCRIT 37.5 % (37.0-47.0); HEMOGLOBIN 11.7 gm/dL (12.0-15.0); LYMPHOCYTES 14.7 %; MCH 27.1 pg (26.0-34.0); MCHC 31.3 g/dL (28.0-37.0); MCV 86.8 fL (80.0-100.0); MONOCYTES 6.6 %; MPV 8.9 fl. (7.2-11.1); NUCLEATED RBCS 0 /100WBC; PLATELET COUNT* 396 thou/uL (150-400); POLYS 75.3 %; RBC 4.32 mil/uL (4.20-5.00); WBC 16.8 thou/uL (4.0-11.0)
[2018-03-21 11:45] LABS: CREATININE 1.8 mg/dL (0.6-1.3); POTASSIUM 4.2 mmol/L (3.5-5.1)
[2018-03-21 11:46] LABS: APTT 27.3 Seconds (25.0-31.3); PROTIME 10.2 Seconds (9.20-11.50)
[2018-03-21 12:04] LABS: ALBUMIN 2.6 g/dL (3.4-5.0); CK-MB MASS 5.5 ng/mL (<0.5-3.6); MAGNESIUM 1.9 mg/dL (1.8-2.4); TOTAL BILIRUBIN 0.4 mg/dL (<0.1-1.0); TOTAL PROTEIN 7.7 g/dL (6.4-8.2); TROPONIN-I LEVEL 0.13 ng/mL (<0.06)
--- NOTE | 2018-03-21 14:52 | EKG ---
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 MIKE : 1975 Requested By: Teddy Stone Order Number: [id number] MD: Moe Barillas Measurements Intervals [place] Rate: 91 P: 18 VA: 137 QRS: -18 QRSD: 94 T: 128 QT: 407 QTc: 501 Interpretive Statements Sinus rhythm Inferior infarct, old Delayed R-wave progression Prolonged QT interval Compared to ECG 03/06/2018 05:43:36 Prolonged QT interval now present Myocardial infarct finding still present Electronically Signed On 03-21-2018 14:52:02 CDT by Moe Barillas [email or web address] <ELECTRONICALLY SIGNED> By: Moe Barillas MD, FACC 03/21/18 1452 1114 1114 Moe Barillas MD, [facility] /EPI
[2018-03-21 15:05] VITALS: BP 206/108
[2018-03-21 16:00] VITALS: BP 175/90
[2018-03-21 20:00] VITALS: BP 123/69
[2018-03-22] VITALS: BP 105/66
[2018-03-22 04:00] VITALS: BP 128/69
[2018-03-22 08:00] VITALS: BP 147/85
[2018-03-22 12:00] VITALS: BP 140/69
== END 2018-03-22 13:30 | disposition home or self-care (01) ==
LOC: M.ERS 11:06 → M.TBA-ER 13:04 → M.2W 13:04
PROVIDERS: Family Medicine; ADMIT Internal Medicine
DX: I50.43 Acute on chronic combined systolic (congestive) and diastolic (congestive) heart failure (principal); I16.1 Hypertensive emergency; I13.0 Hypertensive heart and chronic kidney disease with heart failure and stage 1 through stage 4 chronic kidney disease, or unspecified chronic kidney disease; E11.22 Type 2 diabetes mellitus with diabetic chronic kidney disease; N18.3 Chronic kidney disease, stage 3 (moderate); I25.10 Atherosclerotic heart disease of native coronary artery without angina pectoris; E78.5 Hyperlipidemia, unspecified; I42.9 Cardiomyopathy, unspecified; E66.01 Morbid (severe) obesity due to excess calories; I25.5 Ischemic cardiomyopathy; F41.9 Anxiety disorder, unspecified; I73.9 Peripheral vascular disease, unspecified; G47.30 Sleep apnea, unspecified; R06.00 Dyspnea, unspecified; R79.89 Other specified abnormal findings of blood chemistry; Z79.4 Long term (current) use of insulin; Z87.01 Personal history of pneumonia (recurrent); Z95.5 Presence of coronary angioplasty implant and graft; Z90.89 Acquired absence of other organs; Z98.890 Other specified postprocedural states

== ENCOUNTER → 2019-01-09 | Outpatient (CLI) | payer OTHER, MEDICARE | LOC: M.NUC 12-28 12:00 | DX: R11.2 Nausea with vomiting, unspecified (principal) ==